=== PATIENT | male | born 1965 | race African-American/Black ===

== ENCOUNTER 2023-02-20 15:13 | Inpatient (IN) | payer OTHER ==
[~2023-02-20] VITALS: Ht 167.6 cm; Wt 108.9 kg
[2023-02-20 16:04] LABS: BASOPHILS % 0.6 % (0.0-2.0); EOSINOPHILS % 0.6 % (0.0-5.0); HEMATOCRIT. 32.9 % (42.0-52.0); HEMOGLOBIN. 11.3 g/dL (14.0-18.0); LYMPHOCYTES % 14.2 % (20.0-50.0); MEAN CORPUSCULAR HEMOGLOBIN 28.1 pg (28.0-32.0); MEAN CORPUSCULAR HGB CONC 34.4 g/dL (31.0-37.0); MEAN CORPUSCULAR VOLUME 81.6 fL (80.0-94.0); MEAN PLATELET VOLUME 6.5 fl (7.4-10.4); MONOCYTES % 6.7 % (2.0-8.0); NEUTROPHILS % 77.9 % (40.0-76.0); PLATELET 325 x1000/uL (130-400); RED BLOOD CELL COUNT 4.03 mill/uL (4.7-6.1); RED CELL DISTRIBUTION WIDTH 14.6 % (11.6-14.6); WHITE BLOOD COUNT 10.4 x1000/uL (4.5-11.0)
[2023-02-20 16:10] LABS: CHLORIDE 106 mEq/L (98-107); INDEX HEMOLYSI 1 (1-3); INDEX ICTERIC 1 (1-4); INDEX LIPEMIC 1 (1-3); POTASSIUM 3.5 mEq/L (3.5-5.1); SODIUM 140 mEq/L (136-145)
[2023-02-20 16:19] LABS: ALANINE AMINOTRANSFERASE 90 IU/L (13-61); ALBUMIN 3.4 g/dL (3.4-5.0); ASPARTATE AMINOTRANSFERASE 148 IU/L (15-37); BILIRUBIN TOTAL 0.6 mg/dL (0.1-1.0); CALCIUM 10.1 mg/dL (8.5-10.1); CARBON DIOXIDE 26 mEq/L (21-32); CREATININE 0.8 mg/dL (0.6-1.3); GLUCOSE 112 mg/dL (70-105); PROTEIN TOTAL 8.5 g/dL (6.0-8.3); UREA NITROGEN BLOOD 11 mg/dL (7-21)
[2023-02-20] MEDS ORDERED: DEXAMETHASONE 10 MG/ML VIAL IV ONE (18:00)
[2023-02-20 19:50] VITALS: BP 129/72; PULSE 84; RESP 18; TEMP 99.7
[2023-02-20 20:00] VITALS: BP 137/83; PULSE 79; RESP 19; TEMP 97.5
[2023-02-20] MEDS ORDERED: TRAMADOL 50MG TABLET PO PRN (20:45)
[2023-02-20] MEDS ORDERED: NALOXONE HCL 0.4MG/ML VIAL IV PRN (20:45)
[2023-02-20] MEDS ORDERED: ONDANSETRON HCL 4MG/2ML INJ IV PRN (20:45)
[2023-02-20] MEDS ORDERED: GUAIFENESIN 200MG/10ML SUGAR FREE UDC PO PRN (20:45)
[2023-02-20] MEDS ORDERED: HYDROCODONE/ACETAMINOPHEN 5/325MG TABLET PO PRN (20:45)
[2023-02-20] MEDS ORDERED: CLONIDINE 0.1MG TABLET PO PRN (20:45)
[2023-02-20] MEDS ORDERED: DOCUSATE SODIUM 100MG CAPSULE PO PRN (20:45)
[2023-02-20] MEDS ORDERED: HYDROCODONE/ACETAMINOPHEN 7.5/325MG TABLET PO PRN (20:45)
[2023-02-20] MEDS ORDERED: MAGNESIUM/ALUMINUM HYDROXIDE/SIMETHICONE 30ML UDC PO PRN (20:45)
[2023-02-20] MEDS ORDERED: TAMS-11 PO (22:28)
[2023-02-20] MEDS ORDERED: BACL-141 PO (22:29)
[2023-02-20] MEDS ORDERED: NABU-139 PO (22:31)
[2023-02-20 23:45] VITALS: BP 115/69; PULSE 87; RESP 18; TEMP 97.7
[2023-02-21 03:55] VITALS: BP 126/71; PULSE 81; RESP 18; TEMP 98.1
[2023-02-21 06:40] LABS: BASOPHILS % 0.1 % (0.0-2.0); HEMATOCRIT. 31.6 % (42.0-52.0); HEMOGLOBIN. 10.7 g/dL (14.0-18.0); LYMPHOCYTES % 13.1 % (20.0-50.0); MEAN CORPUSCULAR HEMOGLOBIN 27.8 pg (28.0-32.0); MEAN CORPUSCULAR VOLUME 81.8 fL (80.0-94.0); MEAN PLATELET VOLUME 7.3 fl (7.4-10.4); NEUTROPHILS % 82.8 % (40.0-76.0); PLATELET 326 x1000/uL (130-400); RED BLOOD CELL COUNT 3.86 mill/uL (4.7-6.1); RED CELL DISTRIBUTION WIDTH 14.7 % (11.6-14.6); WHITE BLOOD COUNT 9.5 x1000/uL (4.5-11.0)
[2023-02-21 07:47] LABS: CHLORIDE 103 mEq/L (98-107); INDEX HEMOLYSI 1 (1-3); INDEX ICTERIC 1 (1-4); INDEX LIPEMIC 1 (1-3); POTASSIUM 4.1 mEq/L (3.5-5.1); SODIUM 136 mEq/L (136-145)
[2023-02-21 07:54] LABS: ALANINE AMINOTRANSFERASE 97 IU/L (13-61); ALBUMIN 3.1 g/dL (3.4-5.0); ASPARTATE AMINOTRANSFERASE 149 IU/L (15-37); BILIRUBIN TOTAL 0.4 mg/dL (0.1-1.0); CALCIUM 9.6 mg/dL (8.5-10.1); CARBON DIOXIDE 27 mEq/L (21-32); CHOLESTEROL 143 mg/dL (<200); CREATININE 0.9 mg/dL (0.6-1.3); GLUCOSE 138 mg/dL (70-105); HDL CHOLESTEROL 55 mg/dL (40-59); LDL CHOLESTEROL 80 mg/dL (5-100); PROTEIN TOTAL 7.9 g/dL (6.0-8.3); TRIGLYCERIDE 91 mg/dL (0-150); UREA NITROGEN BLOOD 16 mg/dL (7-21)
[2023-02-21 08:00] VITALS: BP 135/76; PULSE 79; RESP 18; TEMP 97.2
[2023-02-21] MEDS: ACETAMINOPHEN 325MG TABLET PO PRN ×2 (09:11→21:01)
[2023-02-21 12:00] VITALS: BP 130/68; PULSE 76; RESP 18; TEMP 97.6
[2023-02-21 15:09] LABS: HEPATITIS B SURFACE ANTIGEN NEGATIVE
[2023-02-21 15:37] LABS: HEPATITIS C VIR.AB 0.12 INDEXVAL (0.00-0.80)
[2023-02-21 16:00] VITALS: BP 139/71; PULSE 79; RESP 18; TEMP 97.9
[2023-02-21 20:00] VITALS: BP 125/75; PULSE 83; RESP 19; TEMP 98.6
[2023-02-22] VITALS: BP 130/64; PULSE 79; RESP 20; TEMP 97.1
[2023-02-22 04:00] VITALS: BP 127/71; PULSE 84; RESP 20; TEMP 97.9
[2023-02-22 08:00] VITALS: BP 127/75; PULSE 80; RESP 20; TEMP 98.5
[2023-02-22] MEDS: ACETAMINOPHEN 325MG TABLET PO PRN (09:16)
[2023-02-22 12:00] VITALS: BP 120/77; PULSE 75; RESP 20; TEMP 97.9
[2023-02-22 14:39] VITALS: BP 138/67; PULSE 79; TEMP 97.4; O2SAT 100
== END 2023-02-22 16:00 | disposition home or self-care (01) | DRG 552 ==
LOC: ER 15:13 → 4WST 17:48 → EDBEDREQTM 18:05 → EDBEDREQ 18:05
PROVIDERS: ADMIT Hospitalist; ATTEND Hospitalist
DX: M47.817 Spondylosis without myelopathy or radiculopathy, lumbosacral region (principal); M54.30 Sciatica, unspecified side; G89.29 Other chronic pain
CPT/HCPCS: 36415; 72141; 72148; 80053; 80061; 82962; 85025; 86803; 87340; 93970; 97110; 97116; 97162; 99285; J1100